=== PATIENT | female | born 1985 | race Caucasian/White ===

== ENCOUNTER 2023-08-26 04:06 | Inpatient (IN) | payer OTHER ==
[2023-08-26 04:51] VITALS: BMI 36.8
[2023-08-26 05:40] LABS: Fetal Membranes Rupture RUPTURE DETECTED (No Rupture)
[2023-08-26] MEDS ORDERED: Lidocaine 1% (PF) 30 ML VIAL SC PRN (06:01)
[2023-08-26] MEDS ORDERED: hydrALAZINE 20 MG/ML VIAL SLOW IVP PRN ×2 (06:01)
[2023-08-26] MEDS ORDERED: Ondansetron PF 4 MG/2 ML Vial IVP PRN ×2 (06:01→11:27)
[2023-08-26] MEDS ORDERED: Promethazine HCl 25 MG/ML VIAL IM PRN ×3 (06:01→14:24)
[2023-08-26] MEDS ORDERED: Oxytocin 30 units/NS 500 ML 500 ML IV SCH ×2 (06:15→07:00)
[2023-08-26] MEDS ORDERED: Tranexamic Acid 1,000 MG/10 ML VIAL IVP PRN (06:51)
[2023-08-26] MEDS ORDERED: Misoprostol 200 MCG TAB PR PRN (06:51)
[2023-08-26] MEDS ORDERED: Carboprost 250 MCG/ML AMP IM PRN (06:51)
[2023-08-26] MEDS ORDERED: Methylergonovine 0.2 MG/ML VIAL IM PRN (06:51)
[2023-08-26] MEDS ORDERED: Diphenoxylate HCl/Atropine Tablet PO PRN (06:51)
[2023-08-26] MEDS ORDERED: Misoprostol 100 MCG TAB VAG SCH ×2 (07:00)
[2023-08-26] MEDS ORDERED: CEFAZOLIN 1 GM VIAL SLOW IVP SCH ×2 (07:00→14:00)
[2023-08-26 07:33] LABS: Hematocrit 36.2 % (34.9-44.5); Hemoglobin 11.7 g/dL (12.0-15.5); Mean Corpuscular HGB CONC 32.3 g/dL (32.0-36.0); Mean Corpuscular Volume 83.6 fl (81.6-98.3); Mean Platelet Volume 11.3 fl (7.4-10.4); Platelet Count 254 10x3/uL (150-450); RBC Distribution Width 14.5 % (11.5-14.5); Red Blood Cell (RBC) Count 4.33 10x6/uL (3.90-5.03); White Blood Cell (WBC) Count 9.5 10x3/uL (3.5-10.5)
[2023-08-26] MEDS: CEFAZOLIN 2 GM in Sodium Chloride 0.9% 100 ML IVPB SCH (07:40)
[2023-08-26] MEDS ORDERED: Bupivacaine 0.25% HCL 30 ML VIAL ONE (08:00)
[2023-08-26] MEDS ORDERED: Bupivacaine PF 0.5% 30 ML VIAL ONE (08:00)
[2023-08-26] MEDS ORDERED: Terbutaline Sulfate 1 MG/ML VIAL ONE (08:00)
[2023-08-26 08:19] LABS: HBSAg Index 0.17 S/CO (0-0.99); Hep B Surf Ag - L&D Non-Reactive S/CO (NonReactive); Syphilis Antibody Nonreactive (Nonreactive); Syphilis Antibody Index 0.07 S/CO (<1.00 Non-Reactive)
[2023-08-26] MEDS: Oxytocin 30 units/NS 500 ML 500 ML IV SCH (09:18)
[2023-08-26] MEDS: Lactated Ringer's 1,000 ML IV SCH (09:19)
[2023-08-26] MEDS ORDERED: Moisturizing Cream (Eucerin) 113 GM JAR TOP PRN ×2 (11:27→14:24)
[2023-08-26] MEDS ORDERED: Lactated Ringer's 500 ML IV PRN ×2 (11:27→14:24)
[2023-08-26] MEDS ORDERED: diphenhydrAMINE 50 MG/ML VIAL IVP PRN ×2 (11:27→14:24)
[2023-08-26] MEDS ORDERED: Acetaminophen 325 MG TAB PO PRN (11:27)
[2023-08-26] MEDS ORDERED: ePHEDrine Sulfate 50 MG/10 ML VIAL SLOW IVP PRN ×2 (11:27→14:24)
[2023-08-26] MEDS ORDERED: Naloxone HCl 0.4 mg/ml Vial IVP PRN ×4 (11:27→14:24)
[2023-08-26] MEDS ORDERED: Communication Order-Pharmacy FS SCH ×2 (11:30→14:30)
[2023-08-26] MEDS: fentaNYL 2 mcg/Ropivacaine 0.2% Epidural 100 ML CADD EPIDURAL SCH (14:13)
[2023-08-26] MEDS ORDERED: fentaNYL 2 mcg/Ropivacaine 0.2% Epidural 100 ML CADD EPIDURAL SCH (14:30)
[2023-08-26 16:15] LABS: #Monocytes 0.6 10x3/uL (0.0-1.1); %Basophils 0.2 % (0.0-2.0); %Eosinophils 0.2 % (0.0-6.0); %Monocytes 4.6 % (0.0-10.0); %Neutrophils 85.4 % (40.0-75.0); Hematocrit 35.5 % (34.9-44.5); Hemoglobin 11.2 g/dL (12.0-15.5); Mean Corpuscular HGB CONC 31.5 g/dL (32.0-36.0); Mean Corpuscular Hemoglobin 27.1 pg (27.0-33.0); Mean Corpuscular Volume 85.7 fl (81.6-98.3); Mean Platelet Volume 11.1 fl (7.4-10.4); Platelet Count 230 10x3/uL (150-450); RBC Distribution Width 14.5 % (11.5-14.5); Red Blood Cell (RBC) Count 4.14 10x6/uL (3.90-5.03); White Blood Cell (WBC) Count 12.9 10x3/uL (3.5-10.5)
[2023-08-26 16:23] LABS: Creatinine, Urine 134.67 mg/dL (47-110)
[2023-08-26 16:23] LABS: ALT (SGPT) 12 U/L (8-55); AST (SGOT) 15 U/L (5-34); Albumin 3.4 g/dL (3.5-5.0); Alkaline Phosphatase 106 U/L (40-110); Anion Gap 16 mmol/L (10-20); BUN (Urea Nitrogen) 9 mg/dL (7.0-18.7); Bilirubin, Total 0.2 mg/dL (0.2-1.2); Calc. Creatinine Clearance 172 mL/min (70-130); Carbon Dioxide 18 mmol/L (22-29); Chloride 105 mmol/L (98-107); Estimated GFR 102; Globulin 3.1 g/dL (2.4-3.5); Glucose 85 mg/dL (70-105); Potassium 3.3 mmol/L (3.5-5.1); Protein, Total 6.5 g/dL (6.0-8.3); Sodium 136 mmol/L (136-145)
[2023-08-26] MEDS: Acetaminophen 325 MG TAB PO PRN (22:33)
[2023-08-26] MEDS: fentaNYL/Ropivacaine Epidural 100 ML ONE (23:18)
[2023-08-27] MEDS: CEFAZOLIN 1 GM in Sodium Chloride 0.9% 100 ML IVPB SCH (00:43)
[2023-08-27] MEDS: Ondansetron PF 4 MG/2 ML Vial IVP PRN (01:42)
[2023-08-27] MEDS: Lidocaine 1% (PF) 30 ML VIAL SC PRN (04:47)
[2023-08-27] MEDS ORDERED: Milk Of Magnesia 30 ML UDCUP PO PRN (05:14)
[2023-08-27] MEDS ORDERED: Bisacodyl 10 MG SUPP PR PRN (05:14)
[2023-08-27] MEDS ORDERED: hydrALAZINE 20 MG/ML VIAL SLOW IVP PRN (05:14)
[2023-08-27] MEDS: Ibuprofen 800 MG TAB PO PRN (05:49)
[2023-08-27] MEDS ORDERED: Lanolin Ointment 7 GM TUBE TOP PRN (06:58)
[2023-08-27] MEDS ORDERED: Preparation H Ointment 28 GM TUBE PR PRN (06:58)
[2023-08-27] MEDS: Boostrix 0.5 ML (Tdap) VIAL (>/=7 yrs of age) IM ONE (07:02)
[2023-08-27] MEDS: fentaNYL 50 mcg/mL 1 mL Vial ONE (07:02)
[2023-08-27] MEDS: Acetaminophen 325 MG TAB PO SCH (07:02)
[2023-08-27] MEDS: Ibuprofen 800 MG TAB PO SCH (07:02)
[2023-08-27] MEDS: Ferrous Sulfate 325 MG TAB PO SCH (09:17)
[2023-08-27] MEDS: Prenatal Vitamin 1 TAB PO SCH (09:35)
[2023-08-27] MEDS: Docusate 100 MG CAP PO SCH (09:35)
[2023-08-27] MEDS: HYDROcodone/Acetaminophen 5/325 mg Tablet PO SCH (17:40)
[2023-08-28 09:39] VITALS: BP 124/58; TEMP 97.3
[2023-08-28] MEDS: Benzocaine-Menthol 82.5 ML CAN TOP PRN (12:32)
== END 2023-08-28 19:18 | disposition home or self-care (01) | DRG 807 ==
LOC: CSHLD/OP 04:06 → CSHLD 10:27 → CSHPP 08-27 07:31
PROVIDERS: ADMIT Obstetrics & Gynecology; ATTEND Obstetrics & Gynecology
PROC: 10H07YZ Insertion of Other Device into Products of Conception, Via Natural or Artificial Opening (ICD-10-PCS; 2023-08-26)
PROC: 10907ZC Drainage of Amniotic Fluid, Therapeutic from Products of Conception, Via Natural or Artificial Opening (ICD-10-PCS; 2023-08-26)
PROC: 10E0XZZ Delivery of Products of Conception, External Approach (ICD-10-PCS; principal; 2023-08-27)
PROC: 0KQM0ZZ Repair Perineum Muscle, Open Approach (ICD-10-PCS; 2023-08-27)
DX: O42.02 Full-term premature rupture of membranes, onset of labor within 24 hours of rupture (principal); Z37.0 Single live birth; Z3A.38 38 weeks gestation of pregnancy; Z88.0 Allergy status to penicillin; O99.824 Streptococcus B carrier state complicating childbirth; O13.4 Gestational [pregnancy-induced] hypertension without significant proteinuria, complicating childbirth; E66.9 Obesity, unspecified; O99.210 Obesity complicating pregnancy, unspecified trimester; O76 Abnormality in fetal heart rate and rhythm complicating labor and delivery; O70.1 Second degree perineal laceration during delivery
CPT/HCPCS: 51702; 80053; 82570; 84112; 84156; 85027; 86780; 86850; 86870; 86900; 86901; 87340; 99285; J0665; J0690; J2001; J2405; J2590; J3010; J3105; J3490; J7120